=== PATIENT | male | born 1990 | race African-American/Black ===

== ENCOUNTER 2018-09-10 06:53 | Day surgery (SDC) | payer OTHER ==
[~2018-09-10] VITALS: Ht 165.1 cm; Wt 86.5 kg
[2018-09-10] MEDS ORDERED: SINGULAIR 110 MG/TAB PO (07:23)
[2018-09-10] MEDS ORDERED: PROAIR HFA0.09 MG/AC IH (07:23)
[2018-09-10] MEDS ORDERED: RT ADVAIR HFA 1112 G IH (07:23)
[2018-09-10] MEDS ORDERED: PRILOSEC 20MG20 MG PO (07:23)
[2018-09-10] MEDS ORDERED: FLONASE NASAL S16 GM NS (07:24)
[2018-09-10 07:37] VITALS: BP 127/79; PULSE 80; TEMP 98
[2018-09-10 08:30] VITALS: BP 130/73; PULSE 82; TEMP 97.4
--- NOTE | 2018-09-10 08:30 | NUR ---
The patient is wheeled to [place] [facility] [facility] via cart by Kelley MÁRQUEZ. The patient ambulates to the chair with nurse assist. The patient's vital signs are stable. Report is obtained. The patient is sleepy at this time and will be given time to rest before he attempts to eat or drink anything. The call light is within reach and the patient's friend is at the bedside. Will continue to monitor.
[2018-09-10 08:45] VITALS: BP 127/69; PULSE 86
--- NOTE | 2018-09-10 08:45 | NUR ---
The patient's vital signs are stable. The patient wakes and states that his throat is hurting and would like some ice water which is brought to him at this time. The patient denies any other complaints or concerns. The call light is within reach and the patient's friend is at the bedside. Will continue to monitor.
[2018-09-10 09:00] VITALS: BP 125/81; PULSE 79
--- NOTE | 2018-09-10 09:00 | NUR ---
The patient's vital signs are stable. The patient states that his stomach is hurting but he is not nauseous. The patient requests apple sauce which is brought to him at this time. The call light is within reach and the patient's friend is at the bedside. Will continue to monitor.
[2018-09-10 09:15] VITALS: BP 114/79; PULSE 70
--- NOTE | 2018-09-10 09:15 | NUR ---
The patient's vital signs are stable. The patient tolerated the apple sauce and water and has talked to Dr. Mart. The patient is ready to be discharged home. The discharge instructions will be reviewed with the patient.
--- NOTE | 2018-09-10 09:19 | NUR ---
The discharge instructions are reviewed with the patient and all questions are answered. The IV is removed and the tip is intact and a dressing is applied. The patient changes into his personal clothes to be discharged home.
--- NOTE | 2018-09-10 09:26 | NUR ---
The patient is wheeled to the patient entrance via wheelchair by Rosangela WILEY to be discharged home via personal vehicle by his friend. The patient is sent home with his discharge instructions and education packet.
== END 2018-09-10 09:26 | disposition home or self-care (01) ==
LOC: SDCO 06:53
DX: K21.0 Gastro-esophageal reflux disease with esophagitis (principal); J45.909 Unspecified asthma, uncomplicated; Z79.899 Other long term (current) drug therapy
CPT/HCPCS: J2704; J7030